=== PATIENT | female | born 1935 | race Caucasian/White ===

== ENCOUNTER → 2019-07-23 | Outpatient (CLI) | payer MEDICARE ==
--- NOTE | 2019-07-23 11:24 | Diagnostic Imaging Report ---
Chest, 2 views, 07/23/2019. History: Shortness of breath, CHF. Comparison: 06/23/2019. Findings: The cardiomediastinal silhouette and pulmonary vasculature are mildly prominent. Dense right mid and lower lung opacification is again seen with complete obscuration of the right heart border and hemidiaphragms. Patchy left base opacity with minimal blunting of the left costophrenic sulcus is slightly decreased. Left subclavian dual-lead pacer is unchanged in position. There are no acute osseous or soft tissue abnormalities. Impression: CHF with bibasilar atelectasis and effusions, large on the right and small on the left. Signed by: Donnie Barillas on 07/23/2019 11:21 AM
== END ==
LOC: RAD 10:48
PROVIDERS: ATTEND Family Medicine
DX: R06.00 Dyspnea, unspecified (principal); I50.9 Heart failure, unspecified
CPT/HCPCS: 71046

== ENCOUNTER → 2019-08-17 | Outpatient (CLI) | payer MEDICARE ==
--- NOTE | 2019-08-17 11:48 | Diagnostic Imaging Report ---
EXAMINATION: PA and lateral views of the chest. COMPARISON: 07/23/2019 CLINICAL HISTORY: Pleural effusion DISCUSSION: Slight interval decrease in size of the previously described large right and small left pleural effusion. Persistent right middle and lower lobe and left lower lobe airspace opacities, likely atelectasis. No new consolidation. No pneumothorax. Stable cardiomediastinal contour with left subclavian approach implantable cardiac device body and leads. Atherosclerotic calcification of the thoracic aorta. Mild prominence of the pulmonary vasculature are unchanged. No acute osseous abnormalities. Dextroscoliotic curvature of the lumbar spine is unchanged. IMPRESSION: Stable pulmonary venous congestion with slight interval improvement in large right and small left pleural effusions. Persistent bibasilar opacities likely atelectasis. Signed by: Dr. Des Auguste M.D. on 08/17/2019 11:45 AM
== END ==
LOC: RAD 11:05
PROVIDERS: ATTEND Family Medicine
DX: J90 Pleural effusion, not elsewhere classified (principal)
CPT/HCPCS: 71046